=== PATIENT | female | born 1970 | race Caucasian/White ===

== ENCOUNTER 2020-06-28 11:38 | Inpatient (IN) | payer MEDICARE, BC, SELFPAY ==
--- NOTE | ~2020-06-28 | XR_ITS ---
EXAMINATION: XR chest 1V portable DATE: 06/29/2020 06:04 INDICATION: Pulmonary congestion. TECHNIQUE: A single frontal view of the chest was obtained. COMPARISON: Chest single view 06/28/2020, CT abdomen and pelvis 06/28/2020 FINDINGS: The patient is rotated to her left. There is mild atelectasis in the perihilar regions and lower lung zones. No pleural effusion or pneumothorax. The heart size is normal. There is a prominent left paracardial fat pad. A catheter overlies right neck. IMPRESSION: 1. Mild atelectasis in the perihilar regions and lower lung zones. Reviewed, dictated and finalized at location A.
--- NOTE | ~2020-06-28 | CT_ITS ---
EXAMINATION: CT soft tissue neck w con DATE: 06/29/2020 13:55 INDICATION: Right neck mass. TECHNIQUE: Computed tomography (CT) of the neck was performed with 75 mL Omnipaque-350 intravenous co ntrast. Automated exposure control and iterative reconstruction technique were employed. The dose-stephanie gth product was 644.70 mGy-cm. COMPARISON: Ultrasound 06/29/2020 FINDINGS: The visualized portions of the head demonstrate widespread parenchymal calcifications in le ft cerebral hemisphere. There is ventriculomegaly involving the third ventricle and left lateral vent ricle. There is a right-sided ventriculostomy catheter with tip in body of right lateral ventricle. There is leftward midline shift. There are no pathologically enlarged lymph nodes. There is 0% stenos is of the proximal internal carotid arteries relative to normal distal artery lumen diameters. 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 The distal tip of the ventriculoatrial shunt is in the small, chronically thrombosed superior vena cava. There is s ubcutaneous fat stranding in the posterior neck, consistent with inflammation versus scarring. 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 IMPRESSION: 1. Subcutaneous fat stranding in the posterior neck, consistent with inflammation versus scarring. 2. Widespread parenchymal calcifications in the visualized portions of the left cerebral hemisphere, likely chronic encephalomalacia. 3. Ventriculomegaly involving the third and left lateral ventricles. Leftward midline shift. Ventricu loatrial shunt with distal tip in the superior vena cava, which is small and chronically thrombosed. Comparison with outside imaging is recommended to determine if the ventriculomegaly and midline shift are acute or chronic. Reviewed, dictated and finalized at location A. IMPRESSION: 1. Subcutaneous fat stranding in the posterior neck, consistent with inflammati on versus scarring. 2. Widespread parenchymal calcifications in the visualized portions of the left cerebral hemisphere, likely chronic encephalomalacia. 3. Ventriculomegaly involving the third and left lateral ventricles. Leftward m idline shift. 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 Comparison with outside imaging is recommended to determine if the ventriculomegaly and midline shift are acute or chronic.
--- NOTE | ~2020-06-28 | CT_ITS ---
EXAMINATION: CT abdomen pelvis w con DATE: 06/28/2020 13:22 INDICATION: Vomiting. TECHNIQUE: Computed tomography (CT) of the abdomen and pelvis was performed with 100 mL Omnipaque 350 intravenous contrast. Automated exposure control and iterative reconstruction technique were employe d. The dose-length product was 836.66 mGy-cm. COMPARISON: CT abdomen and pelvis 03/23/2012 FINDINGS: The visualized portions of the lung bases demonstrate mild atelectasis. No pleural effusion . The heart size is normal. No pericardial effusion. The liver is normal. There is a gallstone in the gallbladder, which is normal in size. The spleen, pancreas, and adrenal glands are normal. There is cortical thinning of the kidneys. There are cysts in the kidneys measuring up to 2.5 cm on the right. There is diverticulosis of the colon without evidence of diverticulitis. There are no dilated loops of bowel. The appendix is normal. There is a small sliding hiatal hernia. There is wall thickening of the distal esophagus, likely esophagitis. There are no pathologically enlarged lymph nodes. There is no free intraperitoneal fluid. There is chronic right hip dislocation. 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 IMPRESSION: 1. Small sliding hiatal hernia. 2. Wall thickening of the distal esophagus, likely esophagitis. Reviewed, dictated and finalized at location A.
--- NOTE | ~2020-06-28 | XR_ITS ---
EXAMINATION: XR barium swallow modified DATE: 06/30/2020 10:56 INDICATION: Impaired swallowing, neck swelling TECHNIQUE: Modified barium esophagram was performed by myself to administered fluoroscopy, in conjun ction with speech pathologist and patient's caregiver (nurse) who administered barium per speech path ologist documentation. This was recorded on tape. A single fluoroscopic spot image was recorded. The DAP for this procedure was 14.031 Gycm2. Fluoroscopy exposure time was 4 minutes. FINDINGS: Patient with cerebral palsy and difficult positioning due to patient condition. Small volum es of barium were administered with unsuccessful swallowing. A small volume of water was given which initiated a swallow of exiting some the oral contents. Penetration and aspiration were noted. Oral stage: Delayed. Pharyngeal phase: Adequate function. Laryngeal penetration: Present. Aspiration: Present. Laryngeal sensitivity: Present. IMPRESSION: Laryngeal penetration and aspiration. Please refer to speech pathologist findings and sp ecific feeding recommendations. Reviewed, dictated and finalized at location A. IMPRESSION: Laryngeal penetration and aspiration. Please refer to speech patho logist findings and specific feeding recommendations.
--- NOTE | ~2020-06-28 | XR_ITS ---
EXAMINATION: XR chest 1V DATE: 06/28/2020 13:29 INDICATION: Dark brown emesis TECHNIQUE: frontal view of the chest was obtained. COMPARISON: Chest radiograph dated 12/30/15 FINDINGS of the patient: Sensitivity decreased by patient body habitus and leftward rotation. Skinfold projects caudally acros s the central aspect of the right lung. No focal airspace opacities, pulmonary edema, pleural effusio n or pneumothorax. Heart size is normal. IMPRESSION: 1. No acute cardiopulmonary disease. Reviewed, dictated and finalized at location B.
--- NOTE | ~2020-06-28 | US_ITS ---
EXAMINATION: US soft tissue head and neck DATE: 06/29/2020 09:28 INDICATION: Posterior right neck nodule TECHNIQUE: Multiple grayscale and Doppler ultrasound images of the region of concern at the posterior right neck were obtained. COMPARISON: None FINDINGS: No discrete masses or abnormal fluid collections identified at the region of concern. There is howeve r a region of poorly defined thickening of the subcutaneous tissues with mass effect with subtle conc avity to the deep margin of the dermis over an approximately 4 cm region and some architectural disto rtion with subtle concavity to a linear echogenic fascial plane in the subcutaneous fat proximal 1.5 cm deep to the deep margin of the dermis. IMPRESSION: 1. Subtle architectural distortion in the superficial aspect of the subcutaneous fat at the region of concern without a clearly defined mass most likely either due to lipoma or inflammation/swelling of the subcutaneous fat. Could consider MRI or CT for more definitive determination as clinically indica ada. Reviewed, dictated and finalized at location B. IMPRESSION: 1. Subtle architectural distortion in the superficial aspect of the subcutaneou s fat at the region of concern without a clearly defined mass most likely eithe r due to lipoma or inflammation/swelling of the subcutaneous fat. Could conside r MRI or CT for more definitive determination as clinically indicated.
[2020-06-28 11:44] VITALS: BP 119/75; PULSE 94; RESP 18; TEMP 36.8; O2SAT 97
--- NOTE | 2020-06-28 11:56 | PC.NURSE ---
patient is at her normal mental status
[2020-06-28] MEDS: SODIUM CHLORIDE 0.9% IV 1,000 ML 999 ML (12:46)
[2020-06-28 12:54] LABS: Basophils Percent Auto 0.3 % (0.2-1.2); Eosinophils Percent Auto 0.3 % (0-4.4); Hematocrit 35.5 % (37.0-47.0); Immature Granulocyte Absolute 0.03 K/mm3 (0.00-0.031); Immature Granulocyte Percent A 0.4 % (0-0.5); Lymphocytes Absolute Auto 0.75 K/mm3 (0.9-3.2); Lymphocytes Percent Auto 9.7 % (18.3-44.2); Mean Corpuscular Hemoglobin 28.9 pg (26-34); Mean Corpuscular Volume 93.4 fl (80-100); Mean Platelet Volume 10.4 fl (7.4-10.4); Monocytes Absolute Auto 0.4 K/mm3 (0.1-0.6); Monocytes Percent Auto 4.8 % (2.6-8.5); Neutrophils Absolute Auto 6.6 K/mm3 (1.3-6.7); Neutrophils Percent Auto 84.5 % (45.5-73.1); Platelet Count Result 158 k/mm3 (150-375); Red Cell Distribution Width 16.2 % (11.5-14.5); White Blood Count 7.8 K/mm3 (4.5-10.0)
--- NOTE | 2020-06-28 12:55 | ED.GENADULT ---
HPI - General Adult General Chief complaint: Nausea/Vomiting/Diarrhea Stated complaint: VOMITING BLOOD Time Seen by Provider: 06/28/20 12:19 Source: patient Mode of arrival: ambulatory Limitations: no limitations History of Present Illness HPI narrative: Patient is a 49-year-old female who presents to emergency department for evaluation of vomiting that began yesterday patient vomited throughout the day. And then again this morning with large amounts of emesis with inability to eat or take her medications. Patient with history of intellectual disability presents per EMS from home family notes that the patient had been fine before this with no recent illness. Family notes dark emesis. Family denies any urinary or bowel changes. Patient has not had any medication for symptoms Related Data Home Medications Medication Instructions Recorded Confirmed clonazepam 0.5 mg PO BID 06/28/20 lansoprazole 15 mg PO BID 06/28/20 phenobarbital 32.4 mg PO BID 06/28/20 Allergies Allergy/AdvReac Type Severity Reaction Status Date / Time No Known Allergies Allergy Unverified 03/23/12 10:08 Review of Systems Review of Systems: ROS unobtainable: Yes unobtainable due to medical condition [facility] Past Medical History Medical History (Updated 06/28/20 @ 14:59 by Vipin Luong PA-C) Intellectual disability Family History Family History Father Hypertension Mother Hypertension Family history of malignant neoplasm of breast in first degree relative Social History Social History Smoking status: Never smoker Alcohol intake: never Exam Narrative: Exam Narrative: GENERAL: Ill-appearing, well-nourished, and in no acute distress. HEAD: Normocephalic, atraumatic. EYES: PERRLA and EOMI. ENT: Nares clear, no rhinorrhea or epistaxis. Mucous membranes dry NECK: Supple. No adenopathy or masses. CHEST: Clear to auscultation. No respiratory distress. No wheezes rales or rhonchi HEART: Regular rate and rhythm. No murmur heard. Normal peripheral pulses. ABDOMEN: Soft, nontender, nondistended EXTREMITIES: No wounds of the extremities SKIN: Warm, dry, no rash. NEURO: Resting comfortably in the bed in no distress PSYCH: Normal mood and affect. Course Course Emergency Course: Patient evaluated in the emergency department hydrated given medications has been without emesis will be brought into the hospital for observation to ensure that she can tolerate p.o. intake or medications Consultations Consultation #1: Discussed case with hospitalist who has agreed to accept the patient Date: 06/28/20 Time: 14:58 Vital Signs Vital signs: Vital Signs Temperature 98.2 F 06/28/20 11:44 Pulse Rate 94 06/28/20 11:44 Respiratory Rate 18 06/28/20 11:44 Blood Pressure 119/75 06/28/20 11:44 Pulse Oximetry 97 06/28/20 11:44 Temperature 98.2 F 06/28/20 11:44 Pulse Rate 78 06/28/20 13:05 Respiratory Rate 18 06/28/20 13:05 Blood Pressure 112/91 H 06/28/20 13:05 Pulse Oximetry 97 06/28/20 11:44 Medical Decision Making MDM Narrative Medical decision making narrative: Patient with emesis likely dehydration esophagitis no other high risk changes in the blood work or imaging will be kept in hospital to ensure that she can tolerate p.o. intake Vital Signs Vital Signs: Vital Signs Temperature 98.2 F 06/28/20 11:44 Pulse Rate 94 06/28/20 11:44 Respiratory Rate 18 06/28/20 11:44 Blood Pressure 119/75 06/28/20 11:44 Pulse Oximetry 97 06/28/20 11:44 Temperature 98.2 F 06/28/20 11:44 Pulse Rate 78 06/28/20 13:05 Respiratory Rate 18 06/28/20 13:05 Blood Pressure 112/91 H 06/28/20 13:05 Pulse Oximetry 97 06/28/20 11:44 Lab Data Result diagrams: 06/28/20 12:39 06/28/20 12:39 Labs: Lab Results 06/28/20 06/28/20 06/28/20 Range/Units 12
[2020-06-28 13:04] LABS: Alanine Aminotransferase 16 U/L (4-35); Albumin Level 3.7 g/dL (3.5-5.1); Alkaline Phosphatase 152 U/L (38-126); Anion Gap 9 mmol/L (8-16); Aspartate Amino Transferase 15 U/L (14-36); Bilirubin,Total 0.2 mg/dL (0.2-1.3); Blood Urea Nitrogen 19 mg/dL (7-17); Calcium 8.8 mg/dL (8.4-10.2); Carbon Dioxide 30 mmol/L (22-30); Chloride 106 mmol/L (98-107); Estimated CRCL calculation 64 ml/min; Estimated Glomerular Filt Rate > 60; Glucose 104 mg/dL (65-105); Lipase 107 U/L (23-300); Potassium 4.2 mmol/L (3.4-5.0); Sodium 145 mmol/L (137-145)
[2020-06-28] MEDS: FAMOTIDINE 20 MG/2 ML VIAL IV PUSH (13:04)
[2020-06-28 13:05] VITALS: BP 112/91; PULSE 78; RESP 18
[2020-06-28 13:05] LABS: INR 1.1
[2020-06-28] MEDS: ONDANSETRON INJ 4 MG/2 ML VIAL IV PUSH (13:05)
[2020-06-28 13:06] LABS: Partial Thromboplastin Time 29.5 SECONDS (22.3-36.8)
[2020-06-28 13:07] LABS: CRP 3.8 mg/dL (<1.0)
[2020-06-28 13:13] LABS: Add Urine Microscopic? YES; Appearance Urine Clear (Clear); Bacteria Urine Trace /hpf; Bilirubin Urine 1+ (Negative); Blood Urine Negative (Negative); Color Urine Yellow (Yellow); Glucose Urine UA Negative (Negative); Ketones Urine Negative (Negative); Leukocyte Esterase Ur Negative LEU/UL (Negative); Mucus Urine Heavy /lpf; Nitrate Urine Negative (Negative); Protein Urine 1+ mg/dL (Negative); Squamous Epithelial Cell Urine Few /hpf (Few); Urobilinogen Urine Negative mg/dL (<2.0); WBC Urine 0-3 /hpf
[2020-06-28] MEDS: LACTATED RINGERS 1,000 ML 999 ML IV CONT (13:55)
[2020-06-28] MEDS: PHENobarbitaL sodium (*CRX) 130 MG/ML VIAL 100 MG IM (15:44)
[2020-06-28 16:00] VITALS: BP 111/74; PULSE 89; RESP 22; TEMP 36.6; O2SAT 97
--- NOTE | 2020-06-28 16:30 | ADMGEN ---
This patient, Avery Kaye, was admitted to Medical Room 345-. Patient/family oriented to hospital policies and general routines including ID bracelet, bed and alarms, visiting hours, pain management, procedures, bathroom and other care routines, personal items, smoking policy, room service/diet, and visiting hours. Valuables list has been completed. Information on how to activate the Rapid Response Team has been discussed. Patient/Family are encouraged to report perceived risks to care and to ask questions if they do not understand what they are told or what they should do.
[2020-06-28] MEDS: LACTATED RINGERS 1,000 ML 125 ML IV CONT (17:23)
[2020-06-28 17:51] VITALS: BMI 34.0
[2020-06-28 19:43] VITALS: BP 138/71; PULSE 99; RESP 16; TEMP 36.7; O2SAT 100
--- NOTE | 2020-06-28 20:03 | PM.IMHP ---
H&P: HPI History of Present Illness Date/Time: 06/28/20 20:03 Chief complaint: Nausea and vomiting/esophagitis Narrative: Avery Kaye is a 49 year old female Who has a history of having cerebral palsy with as seizure disorder and having a history of having a DVT in the left arm. The patient had ultrasound 03/05/2013 which showed nearly occlusive thrombus in the mid left branchial vein it was limited exam. The patient is chronically on Xarelto. Today the patient had checks x-ray which was read as no acute cardiopulmonary disease. Abdominal and pelvis CT was read as small sliding hiatal hernia wall thickening in the distal esophagus . The patient came to the emergency room due to nausea vomiting diarrhea. She had been vomiting since yesterday all throughout the day. She had a large amount of emesis and was and able to eat or take her medications. She is intellectually disabled due to her cerebral palsy. No family members are with her at this time. But she typically lives at home with her mother and sister I believe. The emesis was dark today. No urinary or bowel changes. The patient was started on lactic Ringer's and IV Pepcid and IV Zofran. She is also given IV Ativan earlier in the emergency room. She was given phenobarbital IM x1 for suspected Seizure activity in the emergency room. neurology has been consulted. She is NPO except for sips of water and medications. Patient is admitted observation date of service 06/28/20 Review of Systems Review of Systems: ROS unobtainable: Yes unobtainable due to mental status ( she has severe cerebral palsy that is due to congenital severe hydroceph) Constitutional: Constitutional: Reports as per HPI and Reports no additional constitutional complaints Eyes: Eyes: Reports as per HPI and Reports no additional eye complaints ENT: Reports system reviewed and no additional complaints, except as documented and Reports Normal hearing present Cardiovascular: Cardiovascular: Reports no additional cardiovascular complaints Respiratory: Respiratory: Reports no additional respiratory complaints and Reports no additional respiratory complaints Gastrointestinal: Gastrointestinal: Reports as per HPI and Reports no additional gastrointestinal complaints Musculoskeletal: Musculoskeletal: Reports no additional musculoskeletal complaints Integumentary/Breasts: Skin/Breast: Reports system reviewed and no additional complaints, except as docu and Reports as per HPI Neurologic: Reports system reviewed and no additional complaints, except as documented, Reports as per HPI and Reports Normal hearing present Psychiatric: Psychiatric: Reports no additional psychiatric complaints and Reports as per HPI Endocrine: Endocrine: Reports no additional endocrine complaints Hematologic/Lymphatic: Hematologic/Lymphatic: Reports no additional hematologic/lymphatic complaints Allergic/Immunologic: Allergic/Immunologic: Reports no additional allergic/immunologic complaints [facility] Past Medical History Medical History Anxiety Cerebral palsy 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 Doreen is her guardian that her mother and least the her sisters also her guar
[2020-06-28] MEDS: PANTOPRAZOLE SODIUM IV 40 MG VIAL IV PUSH (20:09)
[2020-06-28] MEDS: levETIRAcetam 500MG/NACL 100ML 500 MG/100 ML BAG 400 MG IVPB (21:44)
[2020-06-28] MEDS: ENOXAPARIN 80 MG/0.8 ML SYRINGE 75 MG SUB-Q (21:47)
[2020-06-29] VITALS (9 sets, daily range): BP systolic 106–139; BP diastolic 56–84; PULSE 68–94; RESP 12–20; TEMP 36.2–36.8; O2SAT 92–98
[2020-06-29] MEDS: LACTATED RINGERS 1,000 ML 125 ML IV CONT (02:01)
[2020-06-29] MEDS: ALBUTEROL SULFATE NEB 2.5 MG/0.5 ML INH 5 MG INHALATION (04:54)
[2020-06-29] MEDS: ONDANSETRON INJ 4 MG/2 ML VIAL IV PUSH (05:12)
[2020-06-29] MEDS: LEVOTHYROXINE SODIUM INJ 100 MCG/5 ML VIAL 44 MCG IV PUSH (06:05)
[2020-06-29 06:09] LABS: Basophils Percent Auto 0.5 % (0.2-1.2); Eosinophils Absolute Auto 0.1 K/mm3 (0-0.3); Eosinophils Percent Auto 1.2 % (0-4.4); Immature Granulocyte Absolute 0.01 K/mm3 (0.00-0.031); Immature Granulocyte Percent A 0.2 % (0-0.5); Lymphocytes Absolute Auto 1.37 K/mm3 (0.9-3.2); Lymphocytes Percent Auto 22.7 % (18.3-44.2); Mean Corpuscular HGB Conc 31.3 g/dl (32-36); Mean Corpuscular Volume 92.8 fl (80-100); Monocytes Absolute Auto 0.6 K/mm3 (0.1-0.6); Monocytes Percent Auto 9.1 % (2.6-8.5); Neutrophils Percent Auto 66.3 % (45.5-73.1); Platelet Count Result 150 k/mm3 (150-375); Red Blood Count 3.45 M/mm3 (4.2-5.4); Red Cell Distribution Width 16.1 % (11.5-14.5)
[2020-06-29 06:27] LABS: Anion Gap 7 mmol/L (8-16); Blood Urea Nitrogen 15 mg/dL (7-17); Calcium 8.1 mg/dL (8.4-10.2); Carbon Dioxide 26 mmol/L (22-30); Chloride 110 mmol/L (98-107); Estimated Glomerular Filt Rate > 60; Glucose 89 mg/dL (65-105); Potassium 4.9 mmol/L (3.4-5.0); Sodium 143 mmol/L (137-145)
[2020-06-29] MEDS: ENOXAPARIN 80 MG/0.8 ML SYRINGE 75 MG SUB-Q ×2 (08:19→22:34)
[2020-06-29] MEDS: levETIRAcetam 500MG/NACL 100ML 500 MG/100 ML BAG 400 MG IVPB ×2 (08:20→22:29)
[2020-06-29] MEDS: PANTOPRAZOLE SODIUM IV 40 MG VIAL IV PUSH ×2 (08:20→22:35)
--- NOTE | 2020-06-29 09:20 | WPDGICN ---
Assessment and Plan Assessment and plan (1) Coffee ground emesis: Code(s): K92.0 - Hematemesis Status: Acute Assessment and Plan: ct scan with abnormal esophagus, probably esophagitis will proceed with egd later today, hold xarelto and continue with ppi bid she is npo (2) Nausea & vomiting: Code(s): R11.2 - Nausea with vomiting, unspecified Status: Acute Assessment and Plan: egd supportive care, antiemetics prn will need also speech therapy evaluation to assess if aspiration given history of cerebral palsy (3) Esophagitis: Code(s): K20.90 - Esophagitis, unspecified without bleeding Status: Acute (4) Abnormal CT scan, esophagus: Code(s): R93.3 - Abnormal findings on diagnostic imaging of other parts of digestive tract Status: Acute (5) Seizure disorder: Code(s): G40.909 - Epilepsy, unspecified, not intractable, without status epilepticus Status: Chronic Assessment and Plan: neurology to see (6) DVT (deep venous thrombosis): Code(s): I82.409 - Acute embolism and thrombosis of unspecified deep veins of unspecified lower extremity Status: Chronic Assessment and Plan: holding xarelto for now (7) Cerebral palsy: Code(s): G80.9 - Cerebral palsy, unspecified Status: Chronic (8) Acute blood loss anemia: Code(s): D62 - Acute posthemorrhagic anemia Status: Acute GI Consult Note Consult date/time: 06/29/20 09:20 Reason for consult: coffee ground emesis HPI: Avery Kaye is a 49 year old female with history of cerebral palsy, seizure disorder and DVT in the left arm on xarelto. History is obtained from medical records because she is non-verbal. RN told me that she was brought here with dark emesis with coffee ground, in the ER she had CT scan that showed small sliding hiatal hernia with wall thickening in the distal esophagus. RN was told that patient still lives at home and normally she will get liquid diet, no recent hospitalizations. Her family is taking care of her at home. Hb 11 and repeat 10, bun 19, normal creatitine and inr. 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 Doreen is her guardian that her mother and least the her sisters also her guardian. She is listed as a full code. Smoking status: Never smoker Alcohol intake: never Substance use: never Substance use type: does not use Spiritual care concerns: No Meds Home Medications and Allergies Home Medications Medication Instructions Recorded Confirmed Type levothyroxine 88 mcg tablet 88 mcg PO DAILY #30 tablet 02/10/20 06/28/20 Rx rivaroxaban 20 mg tablet 20 mg PO QPM #90 tablet 03/13/20 06/28/20 Rx carbamazepine 200 mg PO BID 06/28/20 06/28/20 History clonazepam 0.5 mg PO BID 06/28/20 06/28/20 History lansoprazole 15 mg PO BID 06/28/20 06/28/20 History phenobarbital 32.4 mg PO BID 06/28/20 06/28/20 History Allergies Allergy/AdvReac Type Severity Reaction Status Date / Time No Known Allergies Al
--- NOTE | 2020-06-29 09:25 | PCSTNOTE ---
Please refer to the Bedside Swallow Evaluation in the EMR. Please note, silent aspiration cannot be ruled out at bedside.
--- NOTE | 2020-06-29 10:30 | PC.NURSE ---
To GI Lab via stretcher. Family at bedside.
[2020-06-29] MEDS: LACTATED RINGERS 1,000 ML 150 ML IV CONT (10:54)
--- NOTE | 2020-06-29 11:22 | WPDANESEPPF ---
Anes - Initial Pre Proc Eval Procedure: Operation Date: 06/29/20 11:30 Proposed Procedures p Esophagogastroduodenoscopy - Nasim Weaver MD Date/Time: 06/29/20 11:22 Surgeon: Martha Conrad PA-C Pre Op Diagnosis: Nausea and vomiting/esophagitis Patient Data Age: 49 Gender: F Height: 4 ft 10 in Weight: 73.9 kg Last Vital Signs Temp 36.8 C 06/29/20 10:55 Pulse 69 06/29/20 10:55 Resp 16 06/29/20 10:55 BP 106/84 06/29/20 10:55 Pulse Ox 92 06/29/20 10:55 Allergies Allergy/AdvReac Type Severity Reaction Status Date / Time No Known Allergies Allergy Unverified 03/23/12 10:08 Home Medications Medication Instructions Recorded Confirmed Type levothyroxine 88 mcg tablet 88 mcg PO DAILY #30 tablet 02/10/20 06/28/20 Rx rivaroxaban 20 mg tablet 20 mg PO QPM #90 tablet 03/13/20 06/28/20 Rx carbamazepine 200 mg PO BID 06/28/20 06/28/20 History clonazepam 0.5 mg PO BID 06/28/20 06/28/20 History lansoprazole 15 mg PO BID 06/28/20 06/28/20 History phenobarbital 32.4 mg PO BID 06/28/20 06/28/20 History Laboratory Tests 06/28/20 06/28/20 06/28/20 12:38 12:39 12:39 WBC 7.8 K/mm3 K/mm3 (4.5-10.0) RBC 3.80 M/mm3 L M/mm3 (4.2-5.4) Hgb 11.0 g/dL L g/dL (12.0-15.0) Hct 35.5 % L % (37.0-47.0) MCV 93.4 fl fl (80-100) MCH 28.9 pg pg (26-34) MCHC 31.0 g/dl L g/dl (32-36) RDW 16.2 % H % (11.5-14.5) Plt Count 158 k/mm3 k/mm3 (150-375) MPV 10.4 fl fl (7.4-10.4) Immature Gran % (Auto) 0.4 % % (0-0.5) Neut % (Auto) 84.5 % H % (45.5-73.1) Lymph % (Auto) 9.7 % L % (18.3-44.2) Grainger % (Auto) 4.8 % % (2.6-8.5) Eos % (Auto) 0.3 % % (0-4.4) Baso % (Auto) 0.3 % % (0.2-1.2) Lymph # (Auto) 0.75 K/mm3 L K/mm3 (0.9-3.2) Grainger # (Auto) 0.4 K/mm3 K/mm3 (0.1-0.6) Eos # (Auto) 0.0 K/mm3 K/mm3 (0-0.3) Baso # (Auto) 0.0 K/mm3 K/mm3 (0.0-0.1) Abs Immat Gran (auto) 0.03 K/mm3 K/mm3 (0.00-0.031) Absolute Neuts (auto) 6.6 K/mm3 K/mm3 (1.3-6.7) Absolute Nucleated RBC 0.0 K/mm3 K/mm3 (0.0-0.012) Nucleated RBC % 0.0 % % (0.0-0.2) PT INR APTT Sodium 145 mmol/L mmol/L (137-145) Potassium 4.2 mmol/L mmol/L (3.4-5.0) Chloride 106 mmol/L mmol/L (98-107) Carbon Dioxide 30 mmol/L mmol/L (22-30) Anion Gap 9 mmol/L mmol/L (8-16) BUN 19 mg/dL H mg/dL (7-17) Creatinine 0.90 mg/dL mg/dL (0.7-1.0) Estim Creat Clear Calc 64 ml/min ml/min Estimated GFR > 60 (59 - ) Glucose 104 mg/dL mg/dL (65-105) Lactic Acid Calcium 8.8 mg/dL mg/dL (8.4-10.2) Total Bilirubin 0.2 mg/dL mg/dL (0.2-1.3) AST 15 U/L U/L (14-36) ALT 16 U/L U/L (4-35) Alkaline Phosphatase 152 U/L H U/L (38-126) C-Reactive Protein Total Protein 7.0 g/dL g/dL (6.3-8.2) Albumin 3.7 g/dL g/dL (3.5-5.1) Lipase 107 U/L U/L (23-300) Urine Color Urine Appearance Urine pH Ur Specific Hoven Urine Protein Urine Glucose (UA) Urine Ketones Ur Blood (Man) Urine Nitrate Urine Bilirubin Urine Urobilinogen Leukocyte Esterase Rfl Urine RBC Urine WBC Ur Squamous Epith Cells Urine Bacteria Urine Mucus Carbamazepine Pending Blood Type Antibody Screen 06/28/20 06/28/20 06/28/20 12:39 12:47 12:47 WBC RBC Hgb Hct MCV MCH
--- NOTE | 2020-06-29 11:48 | WPDNEURCNPN ---
Assessment and Plan Assessment and plan (1) Seizure disorder: Code(s): G40.909 - Epilepsy, unspecified, not intractable, without status epilepticus Status: Chronic (2) Cerebral palsy: Code(s): G80.9 - Cerebral palsy, unspecified Status: Chronic Additional Plan once she is able to take the p.o. 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 She had an ultrasound on March 05, 2013 which documented occlusive thrombus in the left mid brachial wane and patient was placed on the Xarelto and has been on that the most recent chest x-ray is negative CT of the abdomen documented small sliding hiatal hernia with thickening of the distal esophagus but she came to the ER for the nausea vomiting and diarrhea she was treated symptomatically and accordingly with Pepcid and Zofran intravenously but was also noted to have seizure-like activity in the emergency room when neurologist were consulted. Patient has ongoing history of taking carbamazepine 200 mg twice a day, clonazepam 0.5 mg twice a day, and phenobarbital 32.4 mg twice a day. 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 Doreen is her guardian that her mother and least the her sisters also her guardian. She is listed as a full code. Smoking status: Never smoker Alcohol intake: never Substance use: never Substance use type: does not use Spiritual care concerns: No Meds Home Medications and Allergies Home Medications Medication Instructions Recorded Confirmed Type levothyroxine 88 mcg tablet 88 mcg PO DAILY #30 tablet 02/10/20 06/28/20 Rx rivaroxaban 20 mg tablet 20 mg PO QPM #90 tablet 03/13/20 06/28/20 Rx carbamazepine 200 mg PO BID 06/28/20 06/28/20 History clonazepam 0.5 mg PO BID 06/28/20 06/28/20 History lansoprazole 15 mg PO BID 06/28/20 06/28/20 History phenobarbital 32.4 mg PO BID 06/28/20 06/28/20 History Allergies Allergy/AdvReac Type Severity Reaction Status Date / Time No Known Allergies Allergy Unverified 03/23/12 10:08 Vital Signs Vital Signs - 24 hr 06/28/20 13:05 06/28/20 16:00 06/28/20 19:43 Temperature 36.6 C 36.7 C Pulse Rate 78 89 99 Respiratory Rate 18 22 H 16 Blood Pressure 112/91 H 111/74 138/71 Pulse Oximetry 97 100 06/29/20 00:00 06/29/20 04:17 06/29/20 04:55 Temperature 36.8 C 36.6 C Pulse Rate 85 88 91 Respir
--- NOTE | 2020-06-29 11:55 | PC.NURSE ---
Returned from GI Lab via stretcher.
--- NOTE | 2020-06-29 12:43 | PM.IMPN ---
Progress Note: A&P Assessment and Plan (1) Nausea & vomiting: Code(s): R11.2 - Nausea with vomiting, unspecified Status: Acute Assessment and Plan: Patient came in with nausea and vomiting since Friday. Friday they noticed some hematemesis with dark appearance to vomit. She is on a blood thinner. Patient was given antiemetics, ppi IV in some IV fluids for hydration on arrival She has not had any more vomiting episodes. In the ER Abdominal pelvis CT was read as wall thickening in the distal esophagus likely esophagitis. GI has been consulted due to the hematemesis and further evaluation. At this time the patient is NPO until we can get speech therapy to further evaluate her eating Continue monitoring the patient's symptoms give p.r.n. medications as needed. (2) Normocytic anemia: Code(s): D64.9 - Anemia, unspecified Status: Acute Assessment and Plan: Most likely secondary to vomiting last few days and seen some hematemesis. H&H on arrival was slightly low at Hgb 11, Hct 35.5% Slight decrease today to Hgb 10, Hct 32%. She is not having any more vomiting at this time or other signs of bleeding. Will check H&H in the morning and continue monitoring. Transfuse as needed. No acute bleeding at this time. (3) Esophagitis: Code(s): K20.90 - Esophagitis, unspecified without bleeding Status: Acute Assessment and Plan: Found on CT scan. GI was consulted for further evaluation. Continue IV Protonix. (4) Neck swelling: Code(s): R22.1 - Localized swelling, mass and lump, neck Status: Acute Assessment and Plan: Patient was thought to have some neck swelling or nodule noted on examination. Head and neck ultrasound showed Subtle architectural distortion in the superficial aspect of the subcutaneous fat at the region of concern without a clearly defined mass most likely either due to lipoma or inflammation/swelling of the subcutaneous fat. Could consider MRI or CT for more definitive determination as clinically indicated. CT Neck Soft Tissue with contrast is ordered for further evaluation and to rule out any acute abnormality Continue monitoring. (5) Cerebral palsy: Code(s): G80.9 - Cerebral palsy, unspecified Status: Chronic Assessment and Plan: Chronic. Due to intrauterine rubella infection and lives with her brother and mother (6) Hypothyroidism: Code(s): E03.9 - Hypothyroidism, unspecified Status: Chronic Assessment and Plan: I changed oral levothyroxine to IV since she is having vomiting and NPO at this time. Will check her thyroid level. (7) DVT (deep venous thrombosis): Code(s): I82.409 - Acute embolism and thrombosis of unspecified deep veins of unspecified lower extremity Status: Chronic Assessment and Plan: Patient has a history of having DVT to the left arm so will continue with her Xarelto which she is on chronically. (8) Anxiety: Code(s): F41.9 - Anxiety disorder, unspecified Status: Chronic Assessment and Plan: I changed her clonazepam to IV Ativan. (9) Seizure disorder: Code(s): G40.909 - Epilepsy, unspecified, not intractable, without status epilepticus Status: Chronic Assessment and Plan: She had a breakthrough seizure in the ER prior to admission. Will continue with IV Keppra at this time until she is able to tolerate food p.o. in keep her medications down. Continue to hold patient's carbamazepine and phenobarbital. Appreciate neurology consult for further
[2020-06-29] MEDS: LORazepam INJ (*CRX) 2 MG/ML VIAL 0.5 MG IV PUSH ×2 (16:54→22:44)
[2020-06-29] MEDS: LACTATED RINGERS 1,000 ML 75 ML IV CONT (16:57)
--- NOTE | 2020-06-29 21:49 | PM.EVENT ---
Event Note Event Note Event Note: I was called to the room because the patient was snorting and was having some frothy secretions. I came to the room she had some clear to white frothy secretions and we attempted to suction the patient and it was difficult to listen the patient since she was snorting. The patient's oxygen level within normal limits. However felt that the patient may have been fluid overloaded so I gave her IV Lasix x1. I also ordered some ABGs and a stat chest x-ray as well. Patient is quite edematous in her neck and her hands. A neck ultrasound had been ordered earlier today and resulted in the chart. Patient appears to be very edematous. I did ordered a scopolamine patch due to her secretions.. Also some IV Lasix. Benadryl IV. Patient is grinding her teeth and grunting. I also ordered a Gtuhrie catheter for accurate I&O. We will order some ABGs and go from there. I also ordered Solu-Medrol and Benadryl due to the edema.
[2020-06-29 22:21] LABS: Alveolar/Arterial O2 Gradient 20.6 mmHg; Base Excess ABG -1.6 mEq/l (+/-2.0); Device ROOM AIR; Fractional Inspired Oxygen 21 %; HCO3 ABG 23.6 mEq/l (22.0-26.0); Modified Allen's Test Pass; Oxygen Content ABG 13.2 %vol (16.0-22.0); Oxygen Saturation ABG 95.4 % (95.0-100.0); Oxyhemoglobin 93.9 % THb (90.0-100.0); PCO2 ABG 41.9 mmHg (35.0-45.0); PO2 FiO2 Ratio Arterial Blood 3.76 %; Site Drawn LEFT RADIAL; Total Hemoglobin 9.9 g/dL (12.0-18.0); pH ABG 7.369 (7.350-7.450)
[2020-06-29] MEDS: methylPREDNISolone SOD SUCC 125 MG VIAL IV PUSH (22:25)
[2020-06-29] MEDS: SCOPOLAMINE 1.5 MG PATCH TRANSDERM (22:26)
[2020-06-29] MEDS: FUROSEMIDE INJ 40 MG/4 ML VIAL 20 MG IV PUSH (22:31)
[2020-06-30] MEDS: diphenhydrAMINE HCl INJ 50 MG/ML VIAL 25 MG IV PUSH (01:49)
[2020-06-30 05:53] VITALS: BP 105/55; PULSE 77; RESP 16; TEMP 36.7; O2SAT 96
[2020-06-30] MEDS: LEVOTHYROXINE SODIUM INJ 100 MCG/5 ML VIAL 44 MCG IV PUSH (06:06)
[2020-06-30] MEDS: methylPREDNISolone SOD SUCC 125 MG VIAL 60 MG IV PUSH ×2 (06:06→13:57)
[2020-06-30] MEDS: LACTATED RINGERS 1,000 ML 75 ML IV CONT (06:07)
[2020-06-30] MEDS: ENOXAPARIN 80 MG/0.8 ML SYRINGE 75 MG SUB-Q (09:06)
[2020-06-30] MEDS: PANTOPRAZOLE SODIUM IV 40 MG VIAL IV PUSH (09:07)
[2020-06-30] MEDS: levETIRAcetam 500MG/NACL 100ML 500 MG/100 ML BAG 400 MG IVPB (09:26)
--- NOTE | 2020-06-30 10:50 | PM.IMPN ---
Progress Note: A&P Assessment and Plan (1) Neck swelling: Code(s): R22.1 - Localized swelling, mass and lump, neck Status: Acute Assessment and Plan: Patient was thought to have some neck swelling or nodule noted on examination on arrival. Head and neck ultrasound showed Subtle architectural distortion in the superficial aspect of the subcutaneous fat at the region of concern without a clearly defined mass most likely either due to lipoma or inflammation/swelling of the subcutaneous fat. Could consider MRI or CT for more definitive determination as clinically indicated. CT Neck Soft Tissue with contrast was ordered showing Subcutaneous fat stranding in the posterior neck, consistent with inflammation versus scarring. Widespread parenchymal calcifications in the visualized portions of the left cerebral hemisphere, likely chronic encephalomalacia. Ventriculomegaly involving the third and left lateral ventricles. Leftward midline shift. 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 Comparison with outside imaging is recommended to determine if the ventriculomegaly and midline shift are acute or chronic. I talked to the patients sister Rosa, who states the patient had a shunt placed in [place] when she was 1 year old and a few years ago they were told about her thrombosed superior vena cava and that her shunt was no longer working. They did not know about her ventriculomegaly or leftward shift since the patient has not seen a neurologist in years. She does have an appointment with a neurologist at [place] in Aug 2020 for further evaluation. I explained to Rosa that her leftward shift could cause symptoms of nausea/ vomiting and could be acute and that we could consider transferring her to [facility]. She stated that she did not want her transferred to [facility] because then she would not be able to have any visitors. She states right now the patient appears well and comfortable. She is happy that she is no longer vomiting and she is comfortable. She would like to continue work up at this time for the patient in regards to her eating/speech therapy/modified barium swallow and go from there. The patient was given a Scopolamine patch for excess secretions, IV Solu-medrol for some possible tongue swelling and a dose of Lasix since she appeared fluid overloaded. Continue monitoring. (2) Nausea & vomiting: Code(s): R11.2 - Nausea with vomiting, unspecified Status: Acute Assessment and Plan: Patient came in with nausea and vomiting since Friday. Friday they noticed some hematemesis with dark appearance to vomit. She is on a blood thinner. Patient was given antiemetics, PPI IV in some IV fluids for hydration on arrival She has not had any more vomiting episodes. In the ER Abdominal pelvis CT was read as wall thickening in the distal esophagus likely esophagitis. GI was consulted and since the patient is high risk to undergo an EGD they will continue to treat medically with PPI twice daily. Speech therapy evaluated the patient yesterday and recommended a modified barium swallow which will be done today. The patient is still NPO at this time and she has shown some light IV fluid hydration. Continue monitoring the patient's symptoms give p.r.n. medications as needed. (3) Normocytic anemia: Code(s): D64.9 - Anemia, unspecified Status: Acute Assessment and Plan: Most likely secondary to vomiting last few days and seen some hematemesis. H&H on arrival was slightly low at Hgb 11, Hct 35.5% Yesterday Hgb 10, Hct 32%. they have not gotten any labs on the patient today so far. She is not having any more vomiting at this time or other signs of bleeding. Will check H&H in the morning and continue monitoring. Transfuse as needed. No acute bleeding at
[2020-06-30 11:12] LABS: Hematocrit 27.5 % (37.0-47.0); Hemoglobin 8.8 g/dL (12.0-15.0); Mean Corpuscular Hemoglobin 29.4 pg (26-34); Mean Platelet Volume 9.5 fl (7.4-10.4); Platelet Count Result 155 k/mm3 (150-375); Red Blood Count 2.99 M/mm3 (4.2-5.4); Red Cell Distribution Width 15.9 % (11.5-14.5); White Blood Count 4.3 K/mm3 (4.5-10.0)
[2020-06-30 11:26] LABS: Anion Gap 6 mmol/L (8-16); Blood Urea Nitrogen 16 mg/dL (7-17); CRP 6.1 mg/dL (<1.0); Calcium 8.3 mg/dL (8.4-10.2); Carbon Dioxide 28 mmol/L (22-30); Chloride 107 mmol/L (98-107); Estimated Glomerular Filt Rate > 60; Glucose 79 mg/dL (65-105); Potassium 4.4 mmol/L (3.4-5.0); Sodium 141 mmol/L (137-145)
[2020-06-30 11:54] LABS: Transferrin 174 mg/dL (206-381)
[2020-06-30 12:00] VITALS: BP 109/62; PULSE 76; RESP 18; TEMP 36.8; O2SAT 98
[2020-06-30 12:31] LABS: Iron 48 ug/dL (37-170); Percent Iron Saturation 18 % (20-50)
[2020-06-30 12:53] LABS: Folic Acid 4.5 ng/mL (2.76->20)
--- NOTE | 2020-06-30 13:07 | WPDNEUROPN ---
Progress Note: A&P Assessment and Plan (1) Seizure disorder: Code(s): G40.909 - Epilepsy, unspecified, not intractable, without status epilepticus Status: Chronic (2) Cerebral palsy: Code(s): G80.9 - Cerebral palsy, unspecified Status: Chronic (3) Shunt malfunction: Code(s): T85.618A - Breakdown (mechanical) of other specified internal prosthetic devices, implants and grafts, initial encounter Status: Acute Additional Plan obtain the EEG and further adjustment according Review of Systems Review of Systems: All systems reviewed & are unremarkable except as noted in HPI and below Exam Narrative: Exam Narrative: patient is laying on the left side obviously with macro cranium eye slightly deviated to the left side no evidence of intermittent nystagmus, no obvious smile and no facial grimacing in addition she has upper extremities abnormalities Objective Data Vital Signs Vital Signs: Vital Signs - 24 hr 06/29/20 16:00 06/29/20 20:13 06/30/20 05:53 Temperature 36.6 C 36.8 C 36.7 C Pulse Rate 74 68 77 Respiratory Rate 16 12 16 Blood Pressure 130/64 110/56 L 105/55 L Pulse Oximetry 95 96 96 Intake/Output Intake/Output: Intake & Output 06/27/20 06/28/20 06/29/20 06/30/20 23:59 23:59 23:59 23:59 Intake Total 2100 1540 1100 Output Total 650 Balance 2100 1540 450 Meds/Results Medications: Active Medications Generic Name Dose Route Start Last Admin Trade Name Freq PRN Reason Stop Dose Admin Carbamazepine 200 mg 06/28/20 17:00 06/28/20 21:24 Carbamazepine 200 Mg Tablet PO Not Given BID RYLAND Diphenhydramine HCl 25 mg 06/29/20 21:46 06/30/20 01:49 Diphenhydramine Hcl Inj 50 Mg/Ml Vial IV PUSH 25 mg Q4H PRN Administration Itching Enoxaparin Sodium 75 mg 06/28/20 21:00 06/30/20 09:06 Enoxaparin 80 Mg/0.8 Ml Syringe SUB-Q 75 mg Q12H RYLAND Administration Levetiracetam 500 mg in 100 mls @ 400 mls/hr 06/28/20 21:00 06/30/20 09:44 Keppra Iv IVPB Infused Q12HR RYLAND Infusion Lactated Ringer's 1,000 mls @ 75 mls/hr 06/29/20 16:10 06/30/20 06:07 Lr - Lactated Ringers Iv IV CONT 75 mls/hr .[id number] RYLAND Administration Levothyroxine Sodium 44 mcg 06/29/20 06:30 06/30/20 06:06 Levothyroxine Sodium Inj 100 Mcg/5 Ml Vial IV PUSH 44 mcg DAILY@0630 RYLAND Administration Lorazepam 0.5 mg 06/28/20 20:12 06/29/20 22:44 Lorazepam Inj (*Crx) 2 Mg/Ml Vial IV PUSH 0.5 mg Q6H PRN Administration Anxiety Methylprednisolone Sodium Succinate 60 mg 06/30/20 06:00 06/30/20 06:06 Methylprednisolone Sod Succ 125 Mg Vial IV PUSH 60 mg Q6HR RYLAND Administration Ondansetron HCl 4 mg 06/28/20 14:54 06/29/20 05:12 Ondansetron Inj 4 Mg/2 Ml Vial IV PUSH 4 mg Q4H PRN Administration Nausea Pantoprazole Sodium 40 mg 06/28/20 21:00 06/30/20 09:07 Pantoprazole Sodium Iv 40 Mg Vial IV PUSH 40 mg Q12HR RYLAND Administration Phenobarbital 30 mg 06/28/20 17:00 06/28/20 21:24 Phenobarbital (*Crx) 30 Mg Tablet PO Not Given BID RYLAND Rivaroxaban 20 mg 06/28/20 18:00 06/28/20 21:24 Rivaroxaban 20 Mg Tablet PO Not Given QPM [facility] Radiology Results: ITS Impressions Abdomen/Pelvis CT 06/28/20 13:24 IMPRESSION: 1. Small sliding hiatal hernia. 2. Wall thickening of the distal esophagus, likely esophagitis. Chest X-Ray 06/29/20 06:30 IMPRESSION: 1. Mild atelectasis in the perihilar regions and lower lung zones. Head/Neck Ultrasound 06/29/20 09:33 IMPRESSION: 1. Subtle architectural distortion in the superficial aspect of the subcutaneous fat at the region of concern without a clearly defined mass most likely either due to lipoma or inflammation/swelling of the subcutaneous fat. Could consider MRI or CT for more definitive determination as clinically indicated. Soft Tissue Neck CT 06/29/20 14:01 IMPRESSION: 1. Subcutaneous fat stranding in the posterior neck
--- NOTE | 2020-06-30 13:21 | WPDGIPROGNO ---
Progress Note: A&P Assessment and Plan (1) Abnormal CT scan, esophagus: Code(s): R93.3 - Abnormal findings on diagnostic imaging of other parts of digestive tract Status: Acute Assessment and Plan: most likely patient has either esophagitis or ulcer, she is high risk to undergo EGD given Mallampati class IV with special considerations large neck, large tongue, poor opening, poor extension and poor dentition (2) Acute blood loss anemia: Code(s): D62 - Acute posthemorrhagic anemia Status: Acute (3) Esophagitis: Code(s): K20.90 - Esophagitis, unspecified without bleeding Status: Acute Assessment and Plan: plan is to continue with medical therapy, protonix iv bid (4) Nausea & vomiting: Code(s): R11.2 - Nausea with vomiting, unspecified Status: Acute (5) DVT (deep venous thrombosis): Code(s): I82.409 - Acute embolism and thrombosis of unspecified deep veins of unspecified lower extremity Status: Chronic Assessment and Plan: holding blood thinner in setting of ugib (6) Neck swelling: Code(s): R22.1 - Localized swelling, mass and lump, neck Status: Acute Assessment and Plan: probably affecting swallowing, risk for aspiration speech to evaluate (7) Shunt malfunction: Code(s): T85.618A - Breakdown (mechanical) of other specified internal prosthetic devices, implants and grafts, initial encounter Status: Acute Assessment and Plan: neurology on board Subjective Date/time seen: 06/30/20 13:21 Interval history: sister is at bedside. She is high risk to undergo anesthesia with EGD given short neck with diffuse edema, anesthesiologist was very concerned about even attempt EGD. We decided against EGD and continue with medical support. still not swallowing, sister is concerned and speech therapy to see Review of Systems Review of Systems: ROS unobtainable: Yes unobtainable due to mental status Exam Const: Nutritional Appearance: overweight Other: ill appearing HENMT: Head: normal to inspection Ears: hearing grossly normal bilaterally and external ears normal General nose exam: Normal external nose present, Normal nares present and No nasal polyps present Other: Macrocraneum Eyes: General: dysmorphic Neck: Neck: normal visual inspection and other ( neck is stiff. Right side of neck nodule hard and firm left-sided soft) Carotids: normal carotid upstroke Lymphatic: no lymphadenopathy noted Other: edema in neck, also tongue. Chest: Chest palpation & inspection: normal inspection of the chest Resp: Auscultation: rhonchi (few rhonchi) Percussion: percussion normal Cardio: Palpation: normal PMI Rate: regular rate Rhythm: regular rhythm Heart sounds: S1 normal heart sound present and S2 normal heart sound present Peripheral pulses: Peripheral pulses 2+ throughout GI: Inspection: Pannus present GI Palp: Yes Soft to palpation and No Tenderness to palpation present (GI) Auscultation: normal bowel sounds Rectal Exam: deferred : General: Yes no CVA tenderness Back/Spine/Pelvis: Cervical Spine: cervical ROM normal Thoracic/Lumbar Spine: thoracic and lumbar spine normal to inspection Pelvis: no pain with anterior-posterior compression Skin: General skin exam: normal color Lesions: no lesions Rashes: no rashes Trauma: no lacerations or abrasions Hair: normal Nails: normal Neuro: Other: resting, non-verbal Extrem: Other: foot drop noted and arms are deformed Psych: Attitude: Guarded attititude/behavior present Insight: Poor insight present (Psych) Judgement: Poor judgement present (Psych) Objective Data Vital Signs Vital Signs: Vital Signs - 24 hr 06/29/20 16:00 06/29/20 20:13 06/30/20 05:53 Temperature 97.8 F 98.2 F 98.1 F Pulse Rate 74 68 77 Respiratory Rate 16 12 16 Blood Pressure 130/64 110/56 L 105/55 L Pulse Oximetry 95 96 96 06/30/20 12:00 Temperature 98.2 F Pulse Rate 76 Res
--- NOTE | 2020-06-30 17:01 | PM.TDS ---
Transfer Discharge Sum: Prov Provider Date of admission: 06/29/20 15:15 Primary care physician: Ricardo Alexis MD Admitting clinician: Merlin Andersen MD Consults: 06/28/20 Consult to Physician Routine Comment: Consulting Provider: Noble Rivera gastroenterology manager/MD group to consult: neurology Reason for consultation: neurology Has provider been notified: Yes Consult to Physician Routine Comment: Consulting Provider: Nasim Weaver gastroenterology manager/MD group to consult: Dr. Fernandez Reason for consultation: hematemesis Has provider been notified: Yes 06/30/20 16:12 Consult to Dietitian Routine Reason for Consult:: TPN DS: Admitting Diagnosis Admitting Diagnosis Admitting Diagnosis: vomiting, esophagitis DS: Discharge Diagnosis Discharge Diagnosis (1) Neck swelling: Code(s): R22.1 - Localized swelling, mass and lump, neck Status: Acute Assessment and Plan: Patient was thought to have some neck swelling or nodule noted on examination on arrival. Head and neck ultrasound showed Subtle architectural distortion in the superficial aspect of the subcutaneous fat at the region of concern without a clearly defined mass most likely either due to lipoma or inflammation/swelling of the subcutaneous fat. Could consider MRI or CT for more definitive determination as clinically indicated. CT Neck Soft Tissue with contrast was ordered showing Subcutaneous fat stranding in the posterior neck, consistent with inflammation versus scarring. Widespread parenchymal calcifications in the visualized portions of the left cerebral hemisphere, likely chronic encephalomalacia. Ventriculomegaly involving the third and left lateral ventricles. Leftward midline shift. 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 Comparison with outside imaging is recommended to determine if the ventriculomegaly and midline shift are acute or chronic. I talked to the patients sister Rosa, who states the patient had a shunt placed in [place] when she was 1 year old and a few years ago they were told about her thrombosed superior vena cava and that her shunt was no longer working. They did not know about her ventriculomegaly or leftward shift since the patient has not seen a neurologist in years. She does have an appointment with a neurologist at [place] in Aug 2020 for further evaluation. I explained to Rosa that her leftward shift could cause symptoms of nausea/ vomiting and could be acute and that we could consider transferring her to [facility]. She stated that she did not want her transferred to [facility] because then she would not be able to have any visitors. She states right now the patient appears well and comfortable. She is happy that she is no longer vomiting and she is comfortable. She would like to continue work up at this time for the patient in regards to her eating/speech therapy/modified barium swallow and go from there. The patient was given a Scopolamine patch for excess secretions, IV Solu-medrol for some possible tongue swelling and a dose of Lasix since she appeared fluid overloaded. After much discussion with the family and neurology the best next step was being transferred to [place] for further evaluation by Neurosurgery to ensure her ventriculomegaly with leftwards shift is not causing the patients issues of N/V and trouble eating since this is a big change from her baseline per family. She was accepted by Dr. Swanson NeuroSurgeon. (2) Shunt malfunction: Code(s): T85.618A - Breakdown (mechanical) of other specified internal prosthetic devices, implants and grafts, initial encounter Status: Acute Assessment and Plan: See neck swelling. (3) Cerebral ventriculomegaly: Code(s): G93.89 - Other specified disorders of brain
[2020-06-30 17:06] LABS: Glucose Point of Care 72 (65-105)
[2020-06-30] MEDS: AMINO ACIDS 4.25%/D5W/LYTES/CA 2,000 ML 80 ML IV CONT (17:48)
[2020-06-30] MEDS: FAT EMULSIONS IV 20% 250 ML 20.8 ML IVPB (17:48)
[2020-06-30 18:04] LABS: Alanine Aminotransferase 12 U/L (4-35); Albumin Level 2.5 g/dL (3.5-5.1); Alkaline Phosphatase 79 U/L (38-126); Anion Gap 11 mmol/L (8-16); Aspartate Amino Transferase 22 U/L (14-36); Bilirubin,Total 0.4 mg/dL (0.2-1.3); Blood Urea Nitrogen 18 mg/dL (7-17); Calcium 7.8 mg/dL (8.4-10.2); Carbon Dioxide 22 mmol/L (22-30); Chloride 108 mmol/L (98-107); Estimated Glomerular Filt Rate > 60; Glucose 66 mg/dL (65-105); Magnesium 1.6 mg/dL (1.6-2.3); Potassium 4.5 mmol/L (3.4-5.0); Sodium 141 mmol/L (137-145)
[2020-06-30 18:08] LABS: Transferrin 157 mg/dL (206-381)
[2020-07-02 15:56] LABS: Carbamazepine Tegretol 5.1 mcg/mL (4.0-12.0)
--- NOTE | 2020-07-03 11:08 | WPDNEUROLOGY ---
Neurology EEG Report General Information Date of Study: 06/30/20 TEST eeg DIAGNOSIS seizures CONDITION OF RECORDING awake drowsy and sleep EEG NUMBER [id number] CLINICAL HISTORY patient reportedly is mentally handicapped and at the time of tracing was very lethargic also kept her head turned to the left side. Additionally patient is blind and keeps her eyes moving blinking EEG DESCRIPTION throughout the tracing bihemispheric low-voltage beta activity seen admixed with intermittent theta activity and compromised by multiple movement artifacts without any change in the background rhythm .there was no evidence of paroxysmal discharge to consider the focal seizure. sleep with multiple movements. IMPRESSION no significant abnormalities noted particularly there is no evidence of focal seizures
== END 2020-06-30 19:00 | disposition short-term general hospital (02) | DRG 369 ==
LOC: ANHED 14:59 → ANH3MED 15:40
PROVIDERS: Emergency Medicine Emergency Medical Services; Internal Medicine Gastroenterology; Nurse Practitioner; Physician Assistant; Admitting Provider Internal Medicine; Emergency Provider Emergency Medicine; PCP Family Medicine; Visit Provider Internal Medicine
PROC: 0DJ08ZZ Inspection of Upper Intestinal Tract, Via Natural or Artificial Opening Endoscopic (ICD-10-PCS; CPT 43235; principal; 2020-06-29 11:30)
DX: K21.01 Gastro-esophageal reflux disease with esophagitis, with bleeding (principal); T85.618A Breakdown (mechanical) of other specified internal prosthetic devices, implants and grafts, initial encounter; D62 Acute posthemorrhagic anemia; R11.2 Nausea with vomiting, unspecified; G93.89 Other specified disorders of brain; R22.1 Localized swelling, mass and lump, neck; E87.79 Other fluid overload; F41.9 Anxiety disorder, unspecified; G80.8 Other cerebral palsy; F78 Other intellectual disabilities; E03.9 Hypothyroidism, unspecified; G40.909 Epilepsy, unspecified, not intractable, without status epilepticus; E66.9 Obesity, unspecified; Z68.34 Body mass index [BMI] 34.0-34.9, adult; Z86.718 Personal history of other venous thrombosis and embolism; Z79.01 Long term (current) use of anticoagulants
CPT/HCPCS: 36415; 36600; 51701; 70491; 71045; 74177; 76536; 80048; 80053; 80156; 81001; 81025; 82607; 82728; 82746; 82805; 83540; 83550; 83605; 83690; 83735; 84443; 84466; 85025; 85027; 85610; 85730; 86140; 86850; 86900; 86901; 92610; 92611; 94640; 95816; 96361; 96372; 96374; 96375; 96376; 99285; A9270; C9113; G0378; J1200; J1650; J1940; J1953; J2060; J2250; J2405; J2560; J2930; J7030; J7120; Q9967